=== PATIENT | male | born 1985 | race Caucasian/White ===

== ENCOUNTER 2017-04-01 20:52 | Emergency (ER) | payer OTHER ==
[~2017-04-01] VITALS: Ht 170.2 cm; Wt 108.0 kg
[2017-04-01 21:18] VITALS: Ht 170.2 cm; Wt 108.0 kg
[2017-04-01] MEDS ORDERED: SOD CHLORIDE 0.9% 500 ML IV STA (22:27)
[2017-04-01 22:44] LABS: BASOPHILS % 0.3 % (0.0-2.0); EOSINOPHILS # 0.2 10^3/ul (0.0-0.5); EOSINOPHILS % 1.6 % (0.0-7.0); HEMATOCRIT 47.9 % (42.0-52.0); HEMOGLOBIN 15.9 g/dl (14.0-18.0); LYMPHOCYTES # 3.7 10^3/ul (0.8-2.9); LYMPHOCYTES % 31.9 % (15.0-51.0); MEAN CORPUSCULAR HEMOGLOBIN 30.3 pg (29.0-33.0); MEAN CORPUSCULAR HGB CONC 33.2 g/dl (32.0-37.0); MEAN CORPUSCULAR VOLUME 91.4 fl (82.0-101.0); MEAN PLATELET VOLUME 12.2 fl (7.4-10.4); MONOCYTE # 0.9 10^3/ul (0.3-0.9); MONOCYTES % 7.3 % (0.0-11.0); NEUTROPHILS % 58.6 % (39.0-77.0); PLATELET COUNT 174 10^3/UL (140-415); RED BLOOD COUNT 5.24 10^6/ul (4.70-6.10); RED CELL DISTRIBUTION WIDTH 12.7 % (11.5-14.5); WHITE BLOOD COUNT 11.7 10^3/ul (4.8-10.8)
[2017-04-01 23:06] LABS: ALANINE AMINOTRANSFERASE 39 IU/L (13-69); ALBUMIN 4.5 g/dl (3.3-4.9); ALBUMIN/GLOBULIN RATIO 1.66; ALKALINE PHOSPHATASE 66 IU/L (42-121); ANION GAP 14 (8-16); ASPARTATE AMINO TRANSFERASE 22 IU/L (15-46); BILIRUBIN,INDIRECT 0.2 mg/dl (0-1.1); BILIRUBIN,TOTAL 0.2 mg/dl (0.2-1.3); BLOOD UREA NITROGEN 9 mg/dl (7-20); CALCIUM 9.2 mg/dl (8.4-10.2); CARBON DIOXIDE 26 mmol/L (21-31); CHLORIDE 104 mmol/L (97-110); CREATININE 1.05 mg/dl (0.61-1.24); GLUCOSE 96 mg/dl (70-220); POTASSIUM 3.8 mmol/L (3.5-5.1); SODIUM 140 mmol/L (135-144); TOTAL PROTEIN 7.2 g/dl (6.1-8.1)
[2017-04-01 23:21] LABS: B-TYPE NATRIURETIC PEPTIDE 18 PG/ML (0-125)
[2017-04-01 23:23] LABS: TROPONIN-I < 0.012 ng/ml (0.00-0.12)
[2017-04-01 23:33] VITALS: TEMP 98.2
--- NOTE | 2017-04-01 23:48 | RADRPT ---
PROCEDURE: Portable chest x-ray. CLINICAL INDICATION: 31 years of age, male. Chest pain. TECHNIQUE: Portable AP view of the chest. COMPARISON: None available. FINDINGS: Cardiomediastinal contours are normal. Lungs are clear. Negative for pleural effusion or pneumothorax. No acute bony abnormality. IMPRESSION: Negative for evidence of acute chest process. RPTAT: [facility]CTS Physician Antony Date Time Electronically viewed and signed by Shekhar Evans Physician on 04/01/2017 23:48 CS/
[2017-04-01 23:55] VITALS: BP 121/80; PULSE 60; RESP 21
--- NOTE | 2017-04-02 00:18 | ERD ---
ER Documentation Chief Complaint Date/Time DATE: 04/02/17 TIME: 00:14 Chief Complaint Pt sent by PCP for CP for 2 days HPI 31-year-old male somebodies B for chest pain for the past 2 days. Chest pain is right left-sided happens when the patient feels anxious. Mild to moderate intensity. Mild associated shortness of breath. No nausea no vomiting. No diarrhea no other current complaints ROS All systems reviewed and are negative except as per history of present illness. Medications Home Meds No Active Prescriptions or Reported Meds Allergies Allergies: Coded Allergies: No Known Allergy (Unverified , 04/01/17) PMhx/Soc Medical and Surgical Hx: pt denies Medical Hx, pt denies Surgical Hx Hx Alcohol Use: No Hx Substance Use: No Hx Tobacco Use: Yes Smoking Status: Current every day smoker Physical Exam Vitals Vital Signs Date Time Temp Pulse Resp B/P Pulse Ox O2 Delivery O2 Flow Rate FiO2 04/01/17 23:55 60 21 121/80 98 Room Air 04/01/17 23:33 98.2 63 18 133/84 99 Room Air 04/01/17 22:55 Nasal Cannula 04/01/17 21:18 97.9 90 18 160/96 99 Physical Exam Const: [] Head: Atraumatic Eyes: Normal Conjunctiva ENT: Normal External Ears, Nose and Mouth. Neck: Full range of motion..~ No meningismus. Resp: Clear to auscultation bilaterally Cardio: Regular rate and rhythm, no murmurs Abd: Soft, non tender, non distended. Normal bowel sounds Skin: No petechiae or rashes Back: No midline or flank tenderness Ext: No cyanosis, or edema Neur: Awake and alert Psych: Normal Mood and Affect Result Diagram: 04/01/17221704/01/172217 Results 24 hrs Laboratory Tests Test 04/01/17 22:18 White Blood Count 11.710^3/ul Red Blood Count 5.2410^6/ul Hemoglobin 15.9g/dl Hematocrit 47.9% Mean Corpuscular Volume 91.4fl Mean Corpuscular Hemoglobin 30.3pg Mean Corpuscular Hemoglobin Concent 33.2g/dl Red Cell Distribution Width 12.7% Platelet Count 33886^3/UL Mean Platelet Volume 12.2fl Neutrophils % 58.6% Lymphocytes % 31.9% Monocytes % 7.3% Eosinophils % 1.6% Basophils % 0.3% Nucleated Red Blood Cells % 0.0/100WBC Neutrophils # (Manual) 6.810^3/ul Lymphocytes # 3.710^3/ul Monocytes # 0.910^3/ul Eosinophils # 0.210^3/ul Basophils # 0.010^3/ul Nucleated Red Blood Cells # 0.010^3/ul Sodium Level 140mmol/L Potassium Level 3.8mmol/L Chloride Level 104mmol/L Carbon Dioxide Level 26mmol/L Anion Gap 14 Blood Urea Nitrogen 9mg/dl Creatinine 1.05mg/dl Glucose Level 96mg/dl Calcium Level 9.2mg/dl Total Bilirubin 0.2mg/dl Direct Bilirubin 0.00mg/dl Indirect Bilirubin 0.2mg/dl Aspartate Amino Transf (AST/SGOT) 22IU/L Alanine Aminotransferase (ALT/SGPT) 39IU/L Alkaline Phosphatase 66IU/L Troponin I < 0.012ng/ml B-Type Natriuretic Peptide 18PG/ML Total Protein 7.2g/dl Albumin 4.5g/dl Globulin 2.70g/dl Albumin/Globulin Ratio 1.66 Current Medications Medications (Trade) Dose Ordered Sig/Gio Route PRN Reason Start Time Stop Time Status Last Admin Dose Admin Sodium Chloride (NS) 500 ml @ 500 mls/hr Q1H STAT IV 04/01/17 22:27 04/01/17 23:26 DC 04/01/17 22:59 Procedures/MDM EKG: Rate/Rhythm: Normal Sinus Rhythm QRS, ST, T-waves: No changes consistent w/ acute ischemia Impression: No evidence of ischemia or arrhythmia Chest X-ray 1V Interpreted by me: Soft Tissue: No acute abnormalities Bones: No acute abnormalities Mediastinum/Cardiac Silhouette/Lungs: No acute abnormalities Patient's thoracic symptoms have stabilized while in the department and are stable for outpatient follow up. Exam and work up not consistent w/ ischemia, arrhythmia, PE or dissection. 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 Patient has a scheduled outpatient cardiology appointment later on this week. Patient has really only one risk factor with his smoking. Pain is since resolved. He feels that this is anxiety related. Is been told to return via 911 for any return of chest pain. Departure Diagnosis: Primary Impression: Chest pain Chest pain type: unspecified Qualified Code: R07.9 - Chest pain, unspecified type Condition: Stable Patient Instructions: Chest Pain, Uncertain Cause KEENAN LEAL Apr 02, 2017 00:18
== END 2017-04-02 00:22 | disposition home or self-care (01) ==
LOC: E/R 20:52
DX: R07.9 Chest pain, unspecified (principal); F17.210 Nicotine dependence, cigarettes, uncomplicated
CPT/HCPCS: 36415; 71010; 80053; 83880; 84484; 85025; 93005; 99285; J7040